=== PATIENT | female | born 1970 ===

== ENCOUNTER 2018-05-13 13:17 | Emergency (ER) | payer OTHER, SELFPAY ==
[2018-05-13 13:20] VITALS: BP 142/79; PULSE 81; RESP 15; TEMP 36.7; O2SAT 99; BMI 18.8
--- NOTE | 2018-05-13 13:26 | DI.RAD.S_ITS ---
PROCEDURE: XR CHEST 1V INDICATIONS: chest pain TECHNIQUE: One view of the chest was acquired. COMPARISON: None. FINDINGS: Surgical changes and devices: None. Lungs and pleura: Lungs are clear. No pleural effusions or pneumothorax. Mediastinum: Mediastinal contours appear normal. Heart size is normal. Bones and chest wall: No suspicious bony lesions. Overlying soft tissues appear unremarkable. IMPRESSION: No acute process. Dictated by: Lionel Self M.D. on 05/13/2018 at 13:38 Approved by: Lionel Self M.D. on 05/13/2018 at 13:39
[2018-05-13 13:31] VITALS: BP 141/84; PULSE 78; RESP 25; O2SAT 99
[2018-05-13 13:52] LABS: Add Manual Diff / Slide Review NO; Basophils Absolute Auto 100 /uL (0-100); Basophils Percent Auto 0.8 % (0-2); Eosinophils Absolute Auto 200 /uL (0-450); Eosinophils Percent Auto 2.1 % (2-4); Hematocrit 42.1 % (36-46); Hemoglobin 13.4 g/dL (12.0-16.0); Lymphocytes Absolute Auto 2700 /uL (1100-4500); Lymphocytes Percent Auto 32.6 % (25-40); Mean Corpuscular HGB Conc 31.8 % (30-36); Mean Corpuscular Hemoglobin 22.2 PG (26-34); Mean Corpuscular Volume 69.8 fL (80-100); Monocytes Absolute Auto 400 /uL (0-900); Monocytes Percent Auto 4.5 % (3-14); Neutrophils Absolute Auto 5000 /uL (1500-7000); Platelet Count 352 X10^3/uL (150-400); Red Blood Cell Count 6.03 X10^6/uL (4.0-5.2); Red Cell Distribution Width 14.5 % (11.6-14.8); White Blood Cell Count 8.4 X10^3/uL (4.5-11.0)
[2018-05-13 13:59] LABS: PTT Partial Thromboplastin Tim 35 SECONDS (26.4-36.2)
--- NOTE | 2018-05-13 14:00 | ED_ITS ---
HPI - Chest Pain General Chief Complaint: Chest Pain Stated Complaint: CHEST PAIN, HIGH BP Time Seen by Provider: 05/13/18 13:37 Source: patient Mode of arrival: ambulatory Limitations: no limitations History of Present Illness HPI narrative: Patient is a 48-year-old female who presents with chest pain on left side ongoing for number of days. It hurts whenever she takes a deep breath. It has been in [address] nonrad[address]. She denies any cough or shortness of breath. She has not had any fever or chills. MD complaint: chest pain Related Data Home Medications Medication Instructions Recorded Confirmed Benadryl Allergy 1 tab PO DAILY PRN 05/13/18 05/13/18 Glucosamine 1 tab PO DAILY 05/13/18 05/13/18 Allergies Allergy/AdvReac Type Severity Reaction Status Date / Time No Known Drug Allergies Allergy Verified 05/13/18 13:20 Review of Systems Review of Systems GENERAL: Denies chills, fatigue, malaise, fever, sweats, travel HEENT: Denies sinus pain, ear pain, sore throat, difficulty swallowing, neck pain RESPIRATORY: Denies dyspnea, cough, wheezing, hemoptysis, sputum. CARDIOVASCULAR: see HPI GASTROINTESTINAL: Denies nausea, vomiting, abdominal pain, diarrhea, constipation, melena. : Denies dysuria, frequency, incontinence, hematuria, urinary retention, flank pain. MUSCULOSKELETAL: Denies weakness, joint pain, or bony pain SKIN: No rash, no erythema, no pruritus NEUROLOGIC: Denies weakness, dizziness, headache, numbness, change in speech, confusion PSYCHIATRIC: No concerning psychosocial issues. 12 point review of systems is negative except for those stated above and HPI PFSH Social History Smoking Status: Smoker, status unknown Social History Smoking Status: Smoker, status unknown Exam Initial Vital Signs Initial Vital Signs: Vital Signs Temperature 98.1 F 05/13/18 13:20 Pulse Rate 81 05/13/18 13:20 Respiratory Rate 15 05/13/18 13:20 Blood Pressure 142/79 H 05/13/18 13:20 Pulse Oximetry 99 05/13/18 13:20 GENERAL: Well-appearing, well-nourished and in no acute distress. HEENT: Head atraumatic,EOMI, pupils reactive, CARDIOVASCULAR: Regular rate and rhythm without murmurs, rubs or gallops. RESPIRATORY: Breath sounds equal bilaterally, no wheezes rales or rhonchi. ABDOMEN: Soft, nontender. Normoactive bowel sounds all 4 quadrants. No guarding or rebound. EXTREMITIES: Normal range of motion, no clubbing or edema. Neurovascularly intact NEUROLOGICAL: Alert and oriented x4.Normal gait and speech. Cranial nerves II through XII grossly intact. SKIN: Warm, dry, no laceration, no petechiae, no rashes or lesions. Scores HEART Score Heart Score history: Slightly Suspicious Heart Score EKG: Normal Heart Score Age: 45-64 years old Heart Score risk factors: No known risk factors Heart Score troponin: < or = to normal limit Heart Score Total: 1 Course Orders Ordered: ED Orders 05/13/18 13:26 XR chest 1V Stat EKG-12 Lead Stat 05/13/18 13:40 Complete Blood Count AUTO DIFF Stat Comprehensive Metabolic Panel Stat Lipase Stat Partial Thromboplastin Time Stat Prothrombin Time INR Stat Troponin & CK Cardiac Panel Stat Vital Signs - 8 hr 05/13/18 13:20 05/13/18 13:31 05/13/18 14:44 Temperature 98.1 F Pulse Rate 81 78 82 Respiratory Rate 15 25 H 23 Blood Pressure 142/79 H Blood Pressure [Right Arm] 141/84 H 123/75 Pulse Oximetry 99 99 98 05/13/18 14:55 Temperature Pulse Rate 94 H Respiratory Rate 24 Blood Pressure 123/75 Blood Pressure [Right Arm] Pulse Oximetry 97 MDM - Chest Pain Lab Data Attestation: I reviewed the patient's lab results. Result diagrams: 05/13/18 13:40 05/13/18 13:40 Lab Results 05/13/18 05/13/18 05/13/18 Range/Units 13:40 13:40 13:40 WBC 8.4 (4.5-11.0) X10^3/uL RBC 6.03 H (4.0-5.2) X10^6/uL Hgb 13.4 (12.0-16.0) g/dL Hct 42.1 (36-46) % MCV 69.8 L (80-100) fL MCH 22.2 L (26-34) PG MCHC 31.8 (30-36) % RDW 14.5 (11.6-14.8) % Plt Count 352 (150-400) X10^3/uL Neut % (Auto) 60.0 (50-75) % Lymph % (Auto) 32.6 (25-40) % [place] % (Auto) 4.5 (3-14) % Eos % (Auto) 2.1 (2-4) % Baso % (Auto) 0.8 (0-2) % Neut # (Auto) 5000 (3865-8480) /uL Lymph # (Auto) 2700 (0795-6282) /uL [place] # (Auto) 400 (0-900) /uL Eos # (Auto) 200 (0-450) /uL Baso # (Auto) 100 (0-100) /uL RBC Morphology See below Microcytosis 1+ H PT 12.4 (10.1-12.7) SECONDS INR 1.1 (0.9-1.3) APTT 35 (26.4-36.2) SECONDS Sodium 138 (137-145) mmol/L Potassium 4.0 (3.4-5.1) mmol/L Chloride 99 (98-107) mmol/L Carbon Dioxide 29 (22-32) mmol/L BUN 16 (7-17) mg/dL Creatinine 0.70 (0.52-1.04) mg/dL Estimated GFR > 60.0 (>60) mL/min BUN/Creatinine Ratio 22.9 H (6-22) Glucose 108 H (70-100) mg/dL Calcium 10.1 (8.4-10.2) mg/dL Total Bilirubin 0.5 (0.2-1.3) mg/dL AST 36 (14-36) IU/L ALT 35 (9-52) IU/L Alkaline Phosphatase 117 (38-126) U/L Total Creatine Kinase 74 (30-135) U/L CK-MB (CK-2) TNP CK-MB (CK-2) Rel Index TNP Troponin I < 0.012 (0.01-0.034) ng/mL Total Protein 8.7 H (6.3-8.2) g/dL Albumin 4.8 (3.5-5.0) g/dL Globulin 3.9 (1.7-4.1) g/dL Albumin/Globulin Ratio 1.2 (1.0-2.8) Lipase 99 (23-300) U/L Urine Dip Bedside Urine Glucose Negative Bedside Urine Bilirubin - Negative Bedside Urine Ketone - Negative Urine Specific [place] 1.025 Bedside Urine Occult Blood - Negative Bedside Urine pH 6.0 Bedside Urine Protein - Negative Bedside Urine Urobilinogen - Negative Bedside Urine Nitrite - Negative Bedside Urine Leukocytes ++ 125 Esterase Imaging Data Chest x-ray: Radiologist's impression: PROCEDURE: XR CHEST 1V INDICATIONS: chest pain TECHNIQUE: One view of the chest was acquired. COMPARISON: None. FINDINGS: Surgical changes and devices: None. Lungs and pleura: Lungs are clear. No pleural effusions or pneumothorax. Mediastinum: Mediastinal contours appear normal. Heart size is normal. Bones and chest wall: No suspicious bony lesions. Overlying soft tissues appear unremarkable. IMPRESSION: No acute process. Dictated by: Lionel Self M.D. on 05/13/2018 at 13:38 ECG Data Attestation: I personally reviewed and interpreted this ECG as follows: Prior ECG tracings: available for review Interpretation: normal sinus rhythm rate [address] changes no T-wave inversions MI interval 134 QRS 76 MDM Narrative Medical decision making narrative: at this time patient's pain is localized to 1 area reproducible with palpation and movement. A she is low risk for coronary artery disease. Her workup today is essentially negative. At this time the patient will be discharged home. Discharge Plan Departure Patient Disposition: Home Clinical Impression: Atypical chest pain, Costalchondritis, Acute costochondritis Discharge Date/Time: 05/13/18 14:56 Interventions: ED Discharge Assessment Last Done: 05/13/18 14:55 Instructions: Costochondritis, DI for Atypical Chest Pain Activity Restrictions/Additional Instructions: *You have been diagnosed with atypical chest pain, costochondritis *What to do: Increase activity as tolerated, x-ray and blood work are reassuring *Continue to take medications as directed Ibuprofen 600 mg twice a day if needed for pain *Follow up with your primary care provider in 2-3 days *Return to ER if you should have increasing pain, shortness of breath, heart palpitations or any new, worsening or concerning symptoms Prescriptions: No Action Benadryl Allergy 1 tab PO DAILY PRN (Reason: Allergy Symptoms) RF: 0 Glucosamine 1 tab PO DAILY RF: 0 Referrals: [facility] [Provider Group]
--- NOTE | 2018-05-13 14:00 | PC.NURSE ---
pt reporting left body tired, left arm, left eye, pulsing sensation top of head for 2 days. chest discomfort for 2 weeks, worsen the last 3 days, very sleepy. had rash on the face , took benadryl, now better. 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 denies fever,vomiting, coughing, uti sxs. hx of menopause.
[2018-05-13 14:02] LABS: Alanine Aminotransferase 35 IU/L (9-52); Albumin 4.8 g/dL (3.5-5.0); Albumin Globulin Ratio 1.2 (1.0-2.8); Alkaline Phosphatase 117 U/L (38-126); Aspartate Aminotransferase 36 IU/L (14-36); BUN Creatinine Ratio 22.9 (6-22); Bilirubin Total 0.5 mg/dL (0.2-1.3); Blood Urea Nitrogen 16 mg/dL (7-17); Calcium 10.1 mg/dL (8.4-10.2); Carbon Dioxide 29 mmol/L (22-32); Chloride 99 mmol/L (98-107); Creatine Kinase 74 U/L (30-135); Estimated Glomerular Filt Rate > 60.0 mL/min (>60); Globulin 3.9 g/dL (1.7-4.1); Glucose 108 mg/dL (70-100); HEMOLYSIS < 15 (0-50); Lipase 99 U/L (23-300); Sodium 138 mmol/L (137-145); Total Protein 8.7 g/dL (6.3-8.2)
[2018-05-13 14:12] LABS: INR 1.1 (0.9-1.3); Prothrombin Time 12.4 SECONDS (10.1-12.7)
[2018-05-13 14:23] LABS: Troponin I < 0.012 ng/mL (0.01-0.034)
[2018-05-13 14:44] VITALS: BP 123/75; PULSE 82; RESP 23; O2SAT 98
[2018-05-13 14:49] LABS: Microcytosis 1+
[2018-05-13 14:55] VITALS: BP 123/75; PULSE 94; RESP 24; O2SAT 97
== END 2018-05-13 14:57 | disposition home or self-care (01) ==
LOC: ED 14:51
PROVIDERS: Emergency Provider Emergency Medicine
DX: M94.0 Chondrocostal junction syndrome [Tietze] (principal); R07.89 Other chest pain
CPT/HCPCS: 36591; 71045; 80053; 81003; 82550; 83690; 84484; 85025; 85610; 85730; 93005; 99283; 99285